=== PATIENT | female | born 1955 | race Caucasian/White ===

== ENCOUNTER 2018-07-08 13:34 | Outpatient (CLI) | payer BC ==
--- NOTE | 2018-07-08 18:52 | MMO ---
BILATERAL SCREENING MAMMOGRAMS: DATE: 07/08/18 Reference made to prior mammograms which date back to May 2014. This patient's mammogram was interpreted with the assistance of computer-aided detection. FINDINGS: There are scattered fibroglandular elements bilaterally. Indwelling implants are present bilaterally, which limit sensitivity of mammography and could obscure underlying pathology. There is a benign-shola earing punctate calcification within the right breast. There is no evidence of a new dominant mass or suspicious clustering of microcalcifications. IMPRESSION: BIRADS 2: Benign Finding(s) Annual screening mammography is recommended. POS: [facility]
== END 2018-07-08 13:35 | disposition home or self-care (01) ==
LOC: SCSMAMMO 13:34
PROVIDERS: ATTEND Internal Medicine
DX: Z12.31 Encounter for screening mammogram for malignant neoplasm of breast (principal)
CPT/HCPCS: 77067

== ENCOUNTER 2024-08-22 11:55 | Outpatient (CLI) | payer MEDICARE, OTHER ==
[2024-08-22 14:15] LABS: #Basophils 0.04 10x3/uL (0.0-0.2); %Basophils 0.3 % (0.0-1.0); %Eosinophils 2.9 % (0.0-10.0); %Lymphocytes 14.5 % (21.0-51.0); %Monocytes 4.4 % (0.0-10.0); %Neutrophils 77.3 % (42.0-75.0); Hematocrit 38.5 % (36.0-47.0); Hemoglobin 12.4 g/dL (12.0-16.0); Mean Corpuscular HGB CONC 32.2 g/dL (32.0-36.0); Mean Corpuscular Hemoglobin 28.9 pg (27.0-31.0); Mean Corpuscular Volume 89.7 fL (78.0-98.0); Mean Platelet Volume 8.8 fL (7.4-10.4); Platelet Count 425 10x3/uL (130-400); RBC Distribution Width 13.7 % (11.5-14.5); Red Blood Cell (RBC) Count 4.29 mill/uL (4.20-5.40)
[2024-08-22 14:32] LABS: Anion Gap 10 mmol/L (10-20); BUN (Urea Nitrogen) 16 mg/dL (9.8-20.1); Calc. Creatinine Clearance 0 mL/min (70-130); Calcium 9.7 mg/dL (7.8-10.44); Carbon Dioxide 28 mmol/L (23-31); Chloride 106 mmol/L (98-107); Estimated GFR 78; Glucose 86 mg/dL (83-110); Potassium 3.7 mmol/L (3.5-5.1); Sodium 140 mmol/L (136-145)
== END 2024-08-22 11:56 | disposition home or self-care (01) ==
LOC: LABBT 11:55
PROVIDERS: ATTEND Urology
DX: N20.1 Calculus of ureter (principal)
CPT/HCPCS: 80048; 85025; 87086; 93005; 93010

== ENCOUNTER 2024-09-01 06:09 | Day surgery (SDC) | payer MEDICARE, OTHER ==
[2024-08-22 12:36] VITALS: BMI 28.1
[2024-09-01] MEDS ORDERED: Rocuronium Bromide 10 MG/ML (10ML VIAL) ONE (06:59)
[2024-09-01] MEDS ORDERED: Dexamethasone 4 mg/ml Vial ONE (06:59)
[2024-09-01] MEDS ORDERED: Lidocaine 1% PF 5 ML VIAL ONE (06:59)
[2024-09-01] MEDS ORDERED: Ondansetron PF 4 MG/2 ML Vial ONE (06:59)
[2024-09-01] MEDS ORDERED: fentaNYL PF 100 MCG/2 ML SYRINGE ONE (06:59)
[2024-09-01] MEDS ORDERED: PROPOFOL 40 ML ONE (06:59)
[2024-09-01] MEDS ORDERED: SUGAMMADEX SODIUM 200 MG/2 ML VIAL ONE (06:59)
[2024-09-01 07:02] LABS: PTT 28.5 sec (22.9-36.1); Prothrombin Time 12.7 sec (12.0-14.7)
[2024-09-01] MEDS ORDERED: Midazolam HCl 2 mg/2 ml Vial ONE (07:23)
[2024-09-01] MEDS ORDERED: Sodium Chloride 0.9% 100 ML ONE (07:24)
[2024-09-01] MEDS ORDERED: cefTRIAXone (ROCEPHIN) 1 GM VIAL ONE (07:24)
[2024-09-01] MEDS ORDERED: Dexmedetomidine 200 MCG/2 ML VIAL ONE (07:26)
[2024-09-01] MEDS ORDERED: Iopamidol 30 ML ONE (07:27)
[2024-09-01] MEDS ORDERED: PHENYLEPHRINE-NS 100 MCG/ML 10 ML SYRINGE ONE (07:49)
[2024-09-01] MEDS ORDERED: ePHEDrine Sulfate 50 MG/10 ML VIAL ONE ×2 (07:51→10:52)
[2024-09-01] MEDS ORDERED: fentaNYL 50 mcg/mL 1 mL Vial ONE (10:01)
== END 2024-09-01 12:22 | disposition home or self-care (01) ==
LOC: SDC 06:09
PROVIDERS: ATTEND Urology
PROC: 0TC18ZZ Extirpation of Matter from Left Kidney, Via Natural or Artificial Opening Endoscopic (ICD-10-PCS; principal; 2024-09-01)
PROC: 0TC08ZZ Extirpation of Matter from Right Kidney, Via Natural or Artificial Opening Endoscopic (ICD-10-PCS; 2024-09-01)
PROC: 0T788DZ Dilation of Bilateral Ureters with Intraluminal Device, Via Natural or Artificial Opening Endoscopic (ICD-10-PCS; 2024-09-01)
DX: N20.2 Calculus of kidney with calculus of ureter (principal); I10 Essential (primary) hypertension; E11.9 Type 2 diabetes mellitus without complications; E03.9 Hypothyroidism, unspecified; E05.00 Thyrotoxicosis with diffuse goiter without thyrotoxic crisis or storm; D75.1 Secondary polycythemia; Z88.2 Allergy status to sulfonamides; Z88.1 Allergy status to other antibiotic agents; Z79.85 Long-term (current) use of injectable non-insulin antidiabetic drugs; Z79.82 Long term (current) use of aspirin; Z79.899 Other long term (current) drug therapy
CPT/HCPCS: 52356; 74420; 82365; 85610; 85730; C1747; C1769; C2617; J0696; J1100; J2250; J2405; J2704; J3010; Q9967; 88300

== ENCOUNTER 2025-04-08 10:28 | Outpatient (CLI) | payer MEDICARE, OTHER ==
[2025-04-08 12:19] LABS: #Basophils 0.04 10x3/uL (0.0-0.2); #Eosinophils 0.40 10x3/uL (0.0-0.7); #Monocytes 0.43 10x3/uL (0.11-0.59); #Neutrophils 6.60 10x3/uL (1.40-6.50); %Basophils 0.4 % (0.0-1.0); %Eosinophils 4.4 % (0.0-10.0); %Lymphocytes 17.5 % (21.0-51.0); %Monocytes 4.7 % (0.0-10.0); %Neutrophils 72.7 % (42.0-75.0); Hematocrit 46.0 % (36.0-47.0); Hemoglobin 14.9 g/dL (12.0-16.0); Mean Corpuscular Hemoglobin 29.3 pg (27.0-31.0); Mean Corpuscular Volume 90.4 fL (78.0-98.0); Platelet Count 191 10x3/uL (130-400); Red Blood Cell (RBC) Count 5.09 mill/uL (4.20-5.40); White Blood Cell (WBC) Count 9.09 10x3/uL (4.8-10.8)
[2025-04-08 12:53] LABS: Anion Gap 12 mmol/L (10-20); BUN (Urea Nitrogen) 16 mg/dL (9.8-20.1); Calc. Creatinine Clearance 0 mL/min (70-130); Calcium 10.0 mg/dL (7.8-10.44); Carbon Dioxide 22 mmol/L (23-31); Chloride 107 mmol/L (98-107); Glucose 92 mg/dL (83-110); Potassium 4.4 mmol/L (3.5-5.1); Sodium 137 mmol/L (136-145)
== END 2025-04-08 10:29 | disposition home or self-care (01) ==
LOC: LABBT 10:28
PROVIDERS: ATTEND Thoracic Surgery (Cardiothoracic Vascular Surgery)
DX: Z01.812 Encounter for preprocedural laboratory examination (principal); I73.9 Peripheral vascular disease, unspecified
CPT/HCPCS: 80048; 85025

== ENCOUNTER 2025-04-10 06:13 | Day surgery (SDC) | payer MEDICARE, OTHER ==
[2025-04-08 11:05] VITALS: BMI 27.3
[2025-04-10] MEDS ORDERED: PROPOFOL 20 ML ONE (07:28)
== END 2025-04-10 10:55 | disposition home or self-care (01) ==
LOC: SDC 06:13
PROVIDERS: ATTEND Thoracic Surgery (Cardiothoracic Vascular Surgery)
PROC: 047K3ZZ Dilation of Right Femoral Artery, Percutaneous Approach (ICD-10-PCS; principal; 2025-04-10)
DX: I70.211 Atherosclerosis of native arteries of extremities with intermittent claudication, right leg (principal); I65.23 Occlusion and stenosis of bilateral carotid arteries; I10 Essential (primary) hypertension; E11.9 Type 2 diabetes mellitus without complications; E03.9 Hypothyroidism, unspecified; F17.200 Nicotine dependence, unspecified, uncomplicated; Z98.41 Cataract extraction status, right eye; Z90.49 Acquired absence of other specified parts of digestive tract; Z90.710 Acquired absence of both cervix and uterus; Z88.2 Allergy status to sulfonamides; Z88.1 Allergy status to other antibiotic agents; Z79.890 Hormone replacement therapy; Z79.82 Long term (current) use of aspirin; Z79.899 Other long term (current) drug therapy
CPT/HCPCS: 37224; 75710; C1760; C1769 ×2; C1887; J2250; J2704; J3010